=== PATIENT | female | born 1960 | race Caucasian/White ===

== ENCOUNTER → 2021-10-22 | Day surgery (SDC) | payer OTHER ==
[~2021-10-22] MED LIST: ADIPEX-P37.5 MG PO; BENTYL 20MG TAB20 MG PO; CYCLOBENZAPRINE10 MG PO; EFFEXOR XR 150150 MG PO; HALOBETASOL PRO TOP; MELOXICAM15 MG PO; NAPROSYN500 MG PO; NEXIUM40 MG PO; OMEPRAZOLE10 MG PO; PERCOCET 7.5-31 EACH PO; PROTONIX 40 MG40 MG PO; SYNTHROID175 MCG PO; TESSALON PEARLS PO; ULTRAM50 MG PO; ZOFRAN 4 MG TAB4 MG PO
== END | disposition home or self-care (01) ==
LOC: OR 07:41
DX: Z12.11 Encounter for screening for malignant neoplasm of colon (principal); D12.2 Benign neoplasm of ascending colon; K57.30 Diverticulosis of large intestine without perforation or abscess without bleeding; K64.1 Second degree hemorrhoids; K21.9 Gastro-esophageal reflux disease without esophagitis; K44.9 Diaphragmatic hernia without obstruction or gangrene; K31.9 Disease of stomach and duodenum, unspecified; K59.09 Other constipation; E66.01 Morbid (severe) obesity due to excess calories; M19.90 Unspecified osteoarthritis, unspecified site; E03.9 Hypothyroidism, unspecified; Z88.0 Allergy status to penicillin; Z88.1 Allergy status to other antibiotic agents; Z88.2 Allergy status to sulfonamides; Z88.5 Allergy status to narcotic agent; Z88.6 Allergy status to analgesic agent; Z68.41 Body mass index [BMI] 40.0-44.9, adult; Z79.1 Long term (current) use of non-steroidal anti-inflammatories (NSAID); Z79.899 Other long term (current) drug therapy
CPT/HCPCS: J2001; J2704; J3010; J7030